=== PATIENT | female | born 1945 ===

== ENCOUNTER 2018-03-21 10:32 | Outpatient (CLI) | payer MEDICARE, OTHER | END 2018-03-21 10:33 | disposition home or self-care (01) | LOC: C.DEXAIC 10:32 | DX: M81.0 Age-related osteoporosis without current pathological fracture (principal) ==

== ENCOUNTER 2018-03-28 12:10 | Outpatient (CLI) | payer MEDICARE, OTHER | END 2018-03-28 12:11 | disposition home or self-care (01) | LOC: C.CTH 12:10 ==

== ENCOUNTER 2018-04-29 09:35 | Outpatient (CLI) | payer MEDICARE, OTHER | END 2018-04-29 09:36 | disposition home or self-care (01) | LOC: C.PAT 09:35 | DX: J34.2 Deviated nasal septum (principal); J34.3 Hypertrophy of nasal turbinates ==

== ENCOUNTER 2018-05-06 06:58 | Day surgery (SDC) | payer MEDICARE, OTHER ==
[2018-04-29 09:58] VITALS: BMI 23.0
[2018-05-06] MEDS ORDERED: Acetaminophen-Codeine 300/30 mg Tab PO PRN (08:07)
[2018-05-06] MEDS ORDERED: Dextrose 5%/0.45% NS 1,000 ML IV SCH (08:30)
[2018-05-06] MEDS ORDERED: Propofol 10 mg/ml Inj (20 ML) ONE (09:39)
[2018-05-06] MEDS ORDERED: Midazolam 2 MG/2 ML VIAL ONE (10:18)
[2018-05-06] MEDS ORDERED: ceFAZolin 1 gm in NS 1 GM/100 ML BAG IVPB ONE (10:22)
[2018-05-06] MEDS ORDERED: Lidocaine/Epinephrine 1% 1:100000 10 ML IJ ONE (10:23)
[2018-05-06] MEDS ORDERED: EPINEPHrine 1:1000 Nasal Sol(30mL) ONE (10:23)
[2018-05-06] MEDS ORDERED: HYDROmorphone 0.5 mg/0.5 ml ISec IVP PRN (10:37)
[2018-05-06 12:55] VITALS: RESP 18
[2018-05-06 14:48] VITALS: BP 138/63; PULSE 83; TEMP 97.7; O2SAT 98
--- NOTE | 2018-05-06 15:08 | OP ---
PROCEDURE DATE: 05/06/2018 PREOPERATIVE DIAGNOSES: Deviated septum, large turbinates. POSTOPERATIVE DIAGNOSES: Deviated septum, large turbinates. PROCEDURES: Septoplasty, bilateral inferior turbinate endoscopic reduction. SIGNIFICANT FINDINGS: Deviated septum, large turbinates. DESCRIPTION OF PROCEDURE: The patient was brought into room, placed in supine position. Anesthesia initiated through an ET tube. The patient was draped in usual manner. Adrenaline-soaked pledgets were inserted into nasal cavity, they remained there for 5 minutes and removed. The septum was injected on both sides with lidocaine with epinephrine. A Sheldon incision was made on the left and mucoperichondrial flap was raised. A vertical incision was made in the cartilage leaving a 1-1/2 cm anterior and superior strut and a mucoperichondrial flap was raised on the other side. Deviated portion of the cartilage and bone were removed using forceps and chisel. A quilting suture was used to suture the two flaps together and close the Sheldon incision. A 0-degree scope was inserted into nasal cavity. The inferior turbinates were noted to be enlarged and reduced in size going from inferior to superior, anterior posterior direction on both sides, first on the left and then on the right. Bleeding was controlled using suction cautery on both sides. Stents were placed. The patient was taken off anesthesia and taken to recovery room in stable manner. Femi Garcia MD
== END 2018-05-06 14:45 | disposition home or self-care (01) ==
LOC: C.SDS 06:58
PROVIDERS: ATTEND Otolaryngology
DX: J34.2 Deviated nasal septum (principal); J34.3 Hypertrophy of nasal turbinates
CPT/HCPCS: 30140; 30520; 88304; J0690; J1100; J2250; J2704; J3010; J7030; J7040

== ENCOUNTER 2018-08-06 14:56 | Outpatient (CLI) | payer MEDICARE, OTHER | END 2018-08-06 14:57 | disposition home or self-care (01) | LOC: C.MAMMO 14:56 | DX: Z12.31 Encounter for screening mammogram for malignant neoplasm of breast (principal) ==